=== PATIENT | female | born 1940 | race Caucasian/White ===

== ENCOUNTER 2021-04-03 09:35 | Day surgery (SDC) | payer OTHER ==
[2021-03-30 12:26] VITALS: BMI 24.3
[2021-04-03 13:06] VITALS: BP 132/78; PULSE 73; TEMP 98
== END 2021-04-03 13:06 | disposition home or self-care (01) ==
LOC: FASU-ENDO 09:35
PROVIDERS: ATTEND Internal Medicine Gastroenterology
PROC: 0DJD8ZZ Inspection of Lower Intestinal Tract, Via Natural or Artificial Opening Endoscopic (ICD-10-PCS; principal; 2021-04-03 11:31)
DX: Z12.11 Encounter for screening for malignant neoplasm of colon (principal); Z86.010 Personal history of colon polyps; D17.5 Benign lipomatous neoplasm of intra-abdominal organs; R10.32 Left lower quadrant pain

== ENCOUNTER 2023-10-06 14:14 | Emergency (ER) | payer OTHER ==
[2023-10-06 14:39] VITALS: BP 158/65; PULSE 72; RESP 18; TEMP 98; BMI 24.4
[2023-10-06] MEDS ORDERED: ACETAMINOPHEN 325 MG TABLET (FP) PO ONE (14:44)
[2023-10-06] MEDS ORDERED: ACETAMINOPHEN 325 MG TABLET (FP) ONE (15:25)
== END 2023-10-06 18:44 | disposition home or self-care (01) ==
LOC: FER 14:14
DX: S00.83XA Contusion of other part of head, initial encounter (principal); R07.81 Pleurodynia; W01.0XXA Fall on same level from slipping, tripping and stumbling without subsequent striking against object, initial encounter
CPT/HCPCS: 70450-TC; 70486-TC; 71101-TC-LT-FY; 72125-TC; 93005; 99285-25